=== PATIENT | male | born 1945 | race African-American/Black ===

== ENCOUNTER 2020-05-15 15:22 | Outpatient (REF) | payer SELFPAY ==
[2020-05-15 16:12] LABS: Influenza A PCR NEGATIVE (Negative); Influenza B PCR NEGATIVE (Negative); Resp Syncy Virus RNA Qual PCR NEGATIVE (Negative); SARS COV2 PCR INHOUSE POSITIVE (Negative)
== END 2020-05-15 15:23 | disposition home or self-care (01) ==
LOC: HO.LNP 15:22
PROVIDERS: Visit Provider Family Medicine Geriatric Medicine
DX: Z20.828 Contact with and (suspected) exposure to other viral communicable diseases (principal)
CPT/HCPCS: 0241U

== ENCOUNTER 2020-09-13 17:37 | Emergency (ER) | payer OTHER, SELFPAY ==
--- NOTE | ~2020-09-13 | XR_ITS ---
EXAMINATION: XR CHEST CLINICAL INFORMATION: Cough. COMPARISON: None TECHNIQUE: Frontal view of the chest was obtained. FINDINGS: No acute airspace disease. No pulmonary vascular congestion or pleural effusion. No pneumothorax. The heart size is normal. The cardiac and mediastinal contours are normal. There are multiple healed posterior lateral left rib fractures. Moderate degenerative spondylosis of the spine. Surgical clips right upper quadrant of abdomen. XR/XR chest 1V IMPRESSION: No acute abnormality of chest.
[2020-09-13 17:44] VITALS: BP 142/84; PULSE 61; RESP 18; TEMP 36.9; O2SAT 100; BMI 22.4
[2020-09-13 18:18] VITALS: BP 133/82; PULSE 61; RESP 16; O2SAT 98
[2020-09-13 18:25] LABS: MANUAL DIFF FLAG NO
[2020-09-13 18:34] LABS: Basophils Percent Auto 0.1 % (0-2); Eosinophils Absolute Auto 0.2 X10*3/uL (0.0-0.4); Eosinophils Percent Auto 2.8 % (0-4); Hematocrit 35.8 % (42-52); Imm Gran Abs Auto 0.02 X10*3/uL (0.00-0.03); Imm Gran Pct Auto 0.3 % (0.0-0.4); Lymphocytes Absolute Auto 2.3 X10*3/uL (1.2-4.9); Lymphocytes Percent Auto 32.8 % (20-40); Mean Corpuscular HGB Conc 33.5 g/dl (31.0-36.0); Mean Corpuscular Hemoglobin 30.3 pg (27.0-33.0); Mean Corpuscular Volume 90.4 fL (80-98); Monocytes Absolute Auto 0.9 X10*3/uL (0.1-1.2); Monocytes Percent Auto 12.2 % (2-11); Neutrophils Absolute Auto 3.7 X10*3/uL (2.0-8.3); Neutrophils Percent Auto 51.8 % (45-73); Platelet Count 244 X10*3/uL (160-400); Red Blood Count 3.96 X10*6/uL (4.60-5.80); Red Cell Distribution Width 12.8 % (11.0-16.0); White Blood Count 7.1 X10*3/uL (4.8-10.8)
[2020-09-13 18:52] LABS: Anion Gap 12 (12-20); Blood Urea Nitrogen 6 mg/dL (9-16); Calcium 8.4 mg/dL (8.4-10.2); Carbon Dioxide 24 mmol/L (22-29); Chloride 108 mmol/L (96-108); Creatinine Clr Calc Pharmacy 77.8; Estimated Glomerular Filt Rate > 60; Glucose Random 83 mg/dL (60-115); Potassium 4.1 mmol/L (3.3-5.1); Sodium 140 mmol/L (135-145)
--- NOTE | 2020-09-13 18:59 | ED.PSYCH ---
HPI - Psych General Chief Complaint: Psychiatric Symptoms Stated Complaint: PSYCH EVAL Time Seen by Provider: 09/13/20 17:51 Source: patient and EMS Mode of arrival: EMS Limitations: other (Dementia) History of Present Illness HPI Narrative: 74-year-old male presents via EMS from the [facility] for psychiatric evaluation because of combative behavior. He has past medical history of CVA, CHF, history pancreatitis, failure thrive, and unspecified dementia with behavioral disturbance. Upon presentation, patient is pleasant, talking about his [place] service, that he is from [facility], and that he loves [id number]. He does not report any chest pain or pressure, shortness of breath, fevers, chills, abdominal pain, abdominal distention, suicidal ideation homicidal ideation or any other concerning symptoms. History of same: No Associated psychiatric symptoms: none Associated symptoms: denies other symptoms Related Data Home Medications Medication Instructions Recorded Confirmed apixaban 5 mg PO BID 09/13/20 09/13/20 atorvastatin 40 mg PO BEDTIME 09/13/20 09/13/20 carvedilol 6.25 mg PO BID 09/13/20 09/13/20 ergocalciferol (vitamin D2) 50,000 unit PO Q28D 09/13/20 09/13/20 ferrous sulfate 325 mg PO DAILY 09/13/20 09/13/20 fluoxetine 30 mg PO DAILY 09/13/20 09/13/20 folic acid 1 mg PO DAILY 09/13/20 09/13/20 lisinopril 5 mg PO DAILY 09/13/20 09/13/20 melatonin 3 mg PO BEDTIME 09/13/20 09/13/20 Allergies Allergy/AdvReac Type Severity Reaction Status Date / Time No Known Allergies Allergy Verified 09/13/20 17:52 Review of Systems Review of Systems: Constitutional: No Fever, No Chills ENT/Mouth: No Ear Pain, No Nasal Congestion, No sore throat Eyes: No Eye Pain, No Swelling, No Redness Cardiovascular: No Chest Pain, No SOB Respiratory: No Cough, No Sputum, No Dyspnea Gastrointestinal: No Nausea, No Vomiting, No Diarrhea, No Hematochezia, No Melena Genitourinary: No Dysuria, No Urinary Frequency, No Hematuria Musculoskeletal: No Myalgias Skin: No Skin Lesions, No rash Neuro: No Weakness, No Numbness, No Paresthesias, No Dizziness, No Headache Psych: No Anxiety, no Depression, no SI/HI Heme/Lymph: No Lymphadenopathy Endocrine: No Polyuria, No Polydipsia Yes all other systems are reviewed and are negative [facility] Past Medical History Attestation statement: The following information was validated with the patient. Source: old records reviewed Medical History Cerebral infarct Dementia Failure to thrive Heart failure Hypokalemia Intracerebral hemorrhage Pancreatitis Social History Social History Advance Directives: Yes Advance Directives Information Provided: No Advance Directives on File: No Physical Exam Vital Signs: Vital Signs: Last Vital Signs Temp 98.4 F 09/13/20 21:13 Pulse 65 09/14/20 01:52 Resp 16 09/14/20 01:52 BP 145/79 H 09/14/20 01:52 Pulse Ox 99 09/14/20 01:52 Body Mass Index 22.4 Appearance: Alert. Oriented X2, has dementia per baseline. No acute distress. Eyes: Pupils equal, round and reactive to light. ENT: Pharynx normal. Neck: Normal inspection. Neck supple. CVS: Normal heart rate and rhythm. Pulses normal. Respiratory: No respiratory distress. Lung sounds clear auscultation all lobes. Abdomen: Soft and nontender. Negative Dejesus, McBurney, psoas. Skin: Skin warm and dry. Normal skin color. Normal skin turgor. Extremities: No lower extremity edema. Moves all extremities against resistance. Neuro: No motor deficit. No sensory deficit. Course Course Course Narrative: 74-year-old male with past medical history of CVA, CHF, history pancreatitis, failure thrive, and unspecified dementia with behavioral disturbance presents for psychiatric evaluation for threatening nursing staff with a stick. Will order CBC, Chem 7, urinalysis and behavioral health consult. 2:08 a.m.Physician observation started. Patient placed in physician observation because the patient needs to see N and be evaluated for threatening nursing staff with a stick. At the time observation was started the patient's vitals were within normal limits and stable, patient is alert oriented to self as he has dementia with behavioral disturbance per baseline. Physical exam: No focal neural deficits, cranial nerves 2-12 intact, even unlabored respirations, lung sounds clear to auscultation all lobes, regular rate and rhythm, pulses equal to all extremities, brisk capillary refill, moves all extremities spontaneously. Sign-out to Dr. Santa MDM - Psych Differential Diagnosis Differential diagnosis: Likely acute anxiety and mood disorder Medical Records Attestation: I reviewed the patient's medical records. Lab Data Attestation: I reviewed the patient's lab results. Result diagrams: 09/13/20 18:22 09/13/20 18:21 Labs: Lab Results 09/13/20 09/13/20 09/13/20 Range/Units 18:21 18:22 19:30 WBC 7.1 (4.8-10.8) X10*3/uL RBC 3.96 L (4.60-5.80) X10*6/uL Hgb 12.0 L (14.0-18.0) g/dl Hct 35.8 L (42-52) % MCV 90.4 (80-98) fL MCH 30.3 (27.0-33.0) pg MCHC 33.5 (31.0-36.0) g/dl RDW 12.8 (11.0-16.0) % Plt Count 244 (160-400) X10*3/uL MPV 9.0 L (9.4-12.4) fL Immature Gran % (Auto) 0.3 (0.0-0.4) % Neut % (Auto) 51.8 (45-73) % Lymph % (Auto) 32.8 (20-40) % Boyle % (Auto) 12.2 H (2-11) % Eos % (Auto) 2.8 (0-4) % Baso % (Auto) 0.1 (0-2) % Lymph # (Auto) 2.3 (1.2-4.9) X10*3/uL Boyle # (Auto) 0.9 (0.1-1.2) X10*3/uL Eos # (Auto) 0.2 (0.0-0.4) X10*3/uL Baso # (Auto) 0.0 (0.0-0.2) X10*3/uL Abs Immat Gran (auto) 0.02 (0.00-0.03) X10*3/uL Absolute Neuts (auto) 3.7 (2.0-8.3) X10*3/uL Absolute Nucleated RBC 0.000 (0.0-0.012) X10*3/uL Nucleated RBC % (auto) 0.0 (0.0-0.2) /100WBC Sodium 140 (135-145) mmol/L Potassium 4.1 (3.3-5.1) mmol/L Chloride 108 (96-108) mmol/L Carbon Dioxide 24 (22-29) mmol/L Anion Gap 12 (12-20) BUN 6 L (9-16) mg/dL Creatinine 0.81 (0.5-1.4) mg/dL Estim Creat Clear Calc 77.8 Estimated GFR > 60 Random Glucose 83 (60-115) mg/dL Calcium 8.4 (8.4-10.2) mg/dL Urine Color Urine Appearance Urine pH (5.0-8.0) Ur Specific [place] (1.005-1.025) Urine Protein (NEG-TRACE) MG/DL Urine Glucose (UA) (NEG) MG/DL Urine Ketones (NEG) MG/DL Urine Blood (NEG) Urine Nitrite (NEG) Ur Leukocyte Esterase (NEG) COVID-19 (AYANA) Negative (Negative) COVID-19 Clin Com See Note 09/13/20 Range/Units 21:08 WBC (4.8-10.8) X10*3/uL RBC (4.60-5.80) X10*6/uL Hgb (14.0-18.0) g/dl Hct (42-52) % MCV (80-98) fL MCH (27.0-33.0) pg MCHC (31.0-36.0) g/dl RDW (11.0-16.0) % Plt Count (160-400) X10*3/uL MPV (9.4-12.4) fL Immature Gran % (Auto) (0.0-0.4) % Neut % (Auto) (45-73) % Lymph % (Auto) (20-40) % Boyle % (Auto) (2-11) % Eos % (Auto) (0-4) % Baso % (Auto) (0-2) % Lymph # (Auto) (1.2-4.9) X10*3/uL Boyle # (Auto) (0.1-1.2) X10*3/uL Eos # (Auto) (0.0-0.4) X10*3/uL Baso # (Auto) (0.0-0.2) X10*3/uL Abs Immat Gran (auto) (0.00-0.03) X10*3/uL Absolute Neuts (auto) (2.0-8.3) X10*3/uL Absolute Nucleated RBC (0.0-0.012) X10*3/uL Nucleated RBC % (auto) (0.0-0.2) /100WBC Sodium (135-145) mmol/L Potassium (3.3-5.1) mmol/L Chloride (96-108) mmol/L Carbon Dioxide (22-29) mmol/L Anion Gap (12-20) BUN (9-16) mg/dL Creatinine (0.5-1.4) mg/dL Estim Creat Clear Calc Estimated GFR Random Glucose (60-115) mg/dL Calcium (8.4-10.2) mg/dL Urine Color YELLOW Urine Appearance CLEAR Urine pH 7.0 (5.0-8.0) Ur Specific [place] 1.015 (1.005-1.025) Urine Protein NEG (NEG-TRACE) MG/DL Urine Glucose (UA) NEG (NEG) MG/DL Urine Ketones NEG (NEG) MG/DL Urine Blood NEG (NEG) Urine Nitrite NEG (NEG) Ur Leukocyte Esterase NEG (NEG) COVID-19 (AYANA) (Negative) COVID-19 Clin Com Imaging Data Chest x-ray: Attestation: I personally reviewed and interpreted this imaging study as follows: Radiologist's impression: EXAMINATION: XR CHEST CLINICAL INFORMATION: Cough. COMPARISON: None TECHNIQUE: Frontal view of the chest was obtained. FINDINGS: No acute airspace disease. No pulmonary vascular congestion or pleural effusion. No pneumothorax. The heart size is normal. The cardiac and mediastinal contours are normal. There are multiple healed posterior lateral left rib fractures. Moderate degenerative spondylosis of the spine. Surgical clips right upper quadrant of abdomen. XR/XR chest 1V IMPRESSION: No acute abnormality of chest. Discharge Plan Discharge Clinical Impression: Dementia Qualifiers: Dementia type: unspecified type Dementia behavioral disturbance: with behavioral disturbance Qualified Code(s): F03.91 - Unspecified dementia with behavioral disturbance Prescriptions: No Action atorvastatin 40 mg Tablet 40 mg PO BEDTIME RF: 0 carvedilol 6.25 mg Tablet 6.25 mg PO BID RF: 0 melatonin 3 mg Tablet 3 mg PO BEDTIME RF: 0 ergocalciferol (vitamin D2) 50,000 unit Tablet 50,000 unit PO Q28D RF: 0 fluoxetine 10 mg Capsule 30 mg PO DAILY RF: 0 folic acid 1 mg Tablet 1 mg PO DAILY RF: 0 lisinopril 5 mg Tablet 5 mg PO DAILY RF: 0 ferrous sulfate 325 mg (65 mg iron) Tablet,Delayed Release (Dr/Ec) 325 mg PO DAILY RF: 0 apixaban 5 mg Tablet 5 mg PO BID RF: 0
[2020-09-13 19:53] LABS: COVID-19 Test Negative (Negative)
[2020-09-13 20:00] VITALS: BP 137/70; PULSE 67; RESP 16; TEMP 37.1; O2SAT 100
[2020-09-13 21:13] VITALS: BP 139/78; PULSE 63; RESP 16; TEMP 36.9; O2SAT 96
[2020-09-13 21:22] LABS: Glucose Urine UA NEG (NEG); Leukocyte Esterase Urine NEG (NEG); Nitrite Urine NEG (NEG); Specific Gravity - Urine 1.015 (1.005-1.025); Urine Blood NEG (NEG); Urine Ketones NEG (NEG); Urine Protein NEG (NEG-TRACE)
[2020-09-13 21:25] LABS: Appearance Urine CLEAR; Color Urine YELLOW
--- NOTE | 2020-09-13 21:31 | PC.NURSE ---
pt has been calm and cooperative, engaged in conversation and with a good sense of humor. pt unable to void on his own, straight cath with aprox 150ml. pt moved to hospital bed for comfort, awaiting N evaluation.
--- NOTE | 2020-09-13 21:37 | PC.NURSE ---
summary faxed to [facility].
[2020-09-14] VITALS (8 sets, daily range): BP systolic 113–145; BP diastolic 73–88; PULSE 57–84; RESP 16–18; TEMP 36.8; O2SAT 98–100
--- NOTE | 2020-09-14 01:44 | PC.NURSE ---
PT GIVEN COFFEE, SANDWICH AND PUDDING. PT IN GOOD SPIRITS. MEDICATIONS JUST APPROVEDBY PHARMACY, WILL ADMINISTER EVENING MEDICATIONS.
[2020-09-14] MEDS: Atorvastatin Calcium 40 MG TABLET PO ×2 (01:50→20:24)
[2020-09-14] MEDS: Apixaban 5 MG TABLET PO ×3 (01:50→20:24)
[2020-09-14] MEDS: carvediloL 6.25 MG TABLET PO ×3 (01:51→20:23)
[2020-09-14] MEDS: Melatonin 3 MG TABLET PO ×2 (01:52→20:24)
--- NOTE | 2020-09-14 03:43 | PC.NURSE ---
CALLED TO CONFIRM PT ON [facility] WAITING LIST.
[2020-09-14] MEDS: Folic Acid 1 MG TABLET PO (09:01)
[2020-09-14] MEDS: FLUoxetine HCl 10 MG CAPSULE 30 MG PO (09:01)
[2020-09-14] MEDS: lisinopriL 5 MG TABLET PO (09:02)
[2020-09-14] MEDS: Ferrous Sulfate 324 MG TABLET.DR PO (09:02)
--- NOTE | 2020-09-14 12:07 | MHC.CM.ED ---
Received telephone call from Caitlyn segura [facility] on [address]. Patient is a usp resident at their facility. If patient is cleared by crisis, he can return. Referral started in allscripts. Continue to monitor for d/c needs.
--- NOTE | 2020-09-14 16:23 | PC.NURSE ---
spoke with patients . patient has tendency to get confused around 4/5pm. [facility] at bedside.
--- NOTE | 2020-09-14 19:05 | MHC.CM.ED ---
CM met with pt. Very pleasant and quiet. Is confused, with HX of dementia. Is very happy with dinner. When asked about senior living, pt states they are very nice . And they take good care of me. . Pt has been cleared by CARE team. Pt does not meet criteria for inpatient psych placement and can return to senior living. Spoke with nurse at [facility]. States their is no one available at ^pm to accept the patient and CM would need to call back in the morning. RN and MECHANICAL SOUND TECHNICIAN aware. Expect D/C plan tomorrow is to return to [facility]. CM to follow for d/c needs.
--- NOTE | 2020-09-14 19:10 | MHC.CM.ED ---
[facility] [phone].
--- NOTE | 2020-09-15 06:57 | PC.NURSE ---
Report received from Yesika LYNN. Patient is resting comfortably in bed a this time. Bed linen changed of incontinent urine and patient given bed bath and fresh gown and pants. Patient sitting upright in bed now and eating breakfast independently. Respirations regular and even. Skin PWD. VSS. Denies any needs at this time.
[2020-09-15 07:37] VITALS: BP 118/61; PULSE 66; RESP 16; O2SAT 99
[2020-09-15] MEDS: Folic Acid 1 MG TABLET PO (08:49)
[2020-09-15] MEDS: FLUoxetine HCl 10 MG CAPSULE 30 MG PO (08:49)
[2020-09-15] MEDS: Ferrous Sulfate 324 MG TABLET.DR PO (08:49)
[2020-09-15 08:50] VITALS: BP 120/88; PULSE 80
[2020-09-15] MEDS: Apixaban 5 MG TABLET PO (08:50)
[2020-09-15] MEDS: lisinopriL 5 MG TABLET PO (08:50)
[2020-09-15] MEDS: carvediloL 6.25 MG TABLET PO (08:50)
--- NOTE | 2020-09-15 08:50 | PC.NURSE ---
Patient medicated with AM meds. Took willingly. Call castle in reach, will continue to monitor.
--- NOTE | 2020-09-15 09:39 | MHC.CM.ED ---
Patient remains in ER. Cleared by Care Team. Clinical updates sent to [facility] on [address]. Continue to monitor for d/c needs.
[2020-09-15 09:42] VITALS: TEMP 36.8
--- NOTE | 2020-09-15 10:42 | PC.NURSE ---
Patient asleep on stretcher at this time, appears comfortable. Respirations regular and even. Skin PWD.
--- NOTE | 2020-09-15 11:31 | MHC.CM.ED ---
Per Caitlyn at [facility] on [address], patient can leave at 1230pm. [facility] BLS booked. Med nec with chart. Patient, /HCP Isis Vo RN and Dennise YOUNG aware.
[2020-09-15 11:55] VITALS: RESP 18
--- NOTE | 2020-09-15 11:55 | PC.NURSE ---
patient currently sleeping, pt to discharge back to [facility] [place] per case management
--- NOTE | 2020-09-15 12:06 | PC.NURSE ---
report called to gamae
== END 2020-09-15 12:35 ==
PROVIDERS: Nurse Practitioner Family; Emergency Provider Emergency Medicine Emergency Medical Services; PCP Family Medicine Geriatric Medicine
DX: F03.91 Unspecified dementia, unspecified severity, with behavioral disturbance (principal); R05 Cough; R33.9 Retention of urine, unspecified; Z20.822 Contact with and (suspected) exposure to COVID-19; Z79.899 Other long term (current) drug therapy
CPT/HCPCS: 36415; 51702; 71045; 80048; 81003; 85025; 87635; 99285

== ENCOUNTER 2020-09-22 03:34 | Emergency (ER) | payer OTHER, SELFPAY ==
[2020-09-22 03:40] VITALS: BP 109/65; PULSE 60; PULSE 87; RESP 16; TEMP 37.2; O2SAT 96; BMI 19.2
--- NOTE | 2020-09-22 04:21 | PC.NURSE ---
Addendum entered by Eva Bhagat 09/22/20 04:29: [facility] fax # [phone] Original Note: This RN spoke with Kale (RN at [facility] [place]) over the phone regarding complaint/reason for transfer to [facility] ED. Kale states I am a male nurse, and the only nurse on the floor, with two female CNAs. The CNAs came to me and said that the patient was becoming more aggressive and trying to pull the CNAs into his bed while they were attempting to provide care. Nelson was using his wheelchair as a weapon and threatening to 'kill all of us' and tried to attack us with his arms, so I called the police and spoke with the on-call physician who recommended that the patient be transferred to [facility] for a psychiatric evaluation. I wanted to file a Section 12, but I didn't have the paperwork to fill one out so I need it faxed to me, so I can fill one out. This RN told Kale that since arrival, patient has been calm/cooperative/pleasant with staff, and will relay this information to ED physician . Kale states that's what happens...he's usually fine at other places, but when he's here at [facility], he becomes aggressive and threatening. Plan to draw labs, awaiting ED MD evaluation and will update regarding plan of care as needed.
--- NOTE | 2020-09-22 04:54 | ED_ITS ---
HPI - General Adult General Chief complaint: General Medical Stated complaint: sec 12 Time Seen by Provider: 09/22/20 04:03 Source: patient, EMS and RN notes reviewed Mode of arrival: EMS History of Present Illness HPI narrative: This is a 74-year-old male who is brought in by EMS after an incident at [facility] where the staff became concerned about patient's ?aggressive behaviors and verbal threats?. As per patient he states he accidentally went to the bathroom on the bed and thought that the nurse got mad at him for that and that there was a ?misunderstanding?. Patient denies suicidal or homicidal ideations. Patient denies any current complaints with breathing, chest pain, coughing, appetite, or urinary problems. Related Data Home Medications Medication Instructions Recorded Confirmed apixaban 5 mg PO BID 09/13/20 09/13/20 atorvastatin 40 mg PO BEDTIME 09/13/20 09/13/20 carvedilol 6.25 mg PO BID 09/13/20 09/13/20 ergocalciferol (vitamin D2) 50,000 unit PO Q28D 09/13/20 09/13/20 ferrous sulfate 325 mg PO DAILY 09/13/20 09/13/20 fluoxetine 30 mg PO DAILY 09/13/20 09/13/20 folic acid 1 mg PO DAILY 09/13/20 09/13/20 lisinopril 5 mg PO DAILY 09/13/20 09/13/20 melatonin 3 mg PO BEDTIME 09/13/20 09/13/20 Allergies Allergy/AdvReac Type Severity Reaction Status Date / Time No Known Allergies Allergy Verified 09/13/20 17:52 Review of Systems Review of Systems: Pertinent positives and negatives as stated in HPI and 10 point review systems is otherwise negative. [facility] Past Medical History Source: nursing notes reviewed Medical History Cerebral infarct COVID-19 Dementia Failure to thrive Gallbladder disease H/O ETOH abuse Heart failure Hypokalemia Intracerebral hemorrhage Neck fracture Pancreatitis Social History Social History Alcohol intake: unknown Smoking Status: Unknown if ever smoked Advance Directives: Yes Advance Directives on File: Yes Advance Directives Date on File: 09/14/20 Physical Exam Vital Signs: Vital Signs: Last Vital Signs Temp 98.9 F 09/22/20 03:40 Pulse 87 09/22/20 03:40 Resp 16 09/22/20 03:40 BP 109/65 09/22/20 03:40 Pulse Ox 96 09/22/20 03:40 Body Mass Index 19.2 VITAL SIGNS: Reviewed. GENERAL: Well developed, well nourished, in no acute distress. HEAD: Normocephalic/atraumatic EYES: PERRLA, EOMI EARS: Ext canals without abnormality, TMs non-bulging and non-erythematous NOSE: Nares patent bilateral OROPHARYNX: no oral lesions noted, posterior pharynx clear NECK: Supple, no adenopathy LUNGS: Normal breath sounds. No adventitious sounds or accessory muscle use. SpO2<96> CARDIOVASCULAR: Regular rate and rhythm without noted murmurs ABDOMEN: Soft, non-tender, non-distended with bowel sounds. SKIN: Inspection of the skin reveals no rashes NEUROLOGIC: Alert and oriented x 4. Strength and sensation to light touch were grossly intact x 4. Course Course Course Narrative: 74-year-old male with history and clinical presentation consistent with dementia and behavioral features consistent with this diagnosis at baseline. Patient was sent previously by this facility on 09/14 and was evaluated and cleared by the crisis team. We will evaluate with basic lab work for any indication there have been changes that may have led to this latest episode. However, if these are within normal limits patient will be transferred back to [facility] with recommendations to pursue further evaluation in the outpatient setting. Review of all investigations is negative for any acute findings that would suggest infectious or metabolic etiologies for the described behavior. Patient is otherwise medically stable for return to the long-term care facility and further evaluation and treatment of his dementia related behaviors. Medical Decision Making Lab Data Result diagrams: 09/22/20 04:57 09/22/20 04:57 Labs: Lab Results 09/22/20 09/22/20 Range/Units 04:57 04:57 WBC 9.1 (4.8-10.8) X10*3/uL RBC 3.95 L (4.60-5.80) X10*6/uL Hgb 11.7 L (14.0-18.0) g/dl Hct 35.0 L (42-52) % MCV 88.6 (80-98) fL MCH 29.6 (27.0-33.0) pg MCHC 33.4 (31.0-36.0) g/dl RDW 12.7 (11.0-16.0) % Plt Count 239 (160-400) X10*3/uL MPV 8.8 L (9.4-12.4) fL Immature Gran % (Auto) 0.2 (0.0-0.4) % Neut % (Auto) 63.7 (45-73) % Lymph % (Auto) 21.7 (20-40) % [place] % (Auto) 11.7 H (2-11) % Eos % (Auto) 2.5 (0-4) % Baso % (Auto) 0.2 (0-2) % Lymph # (Auto) 2.0 (1.2-4.9) X10*3/uL [place] # (Auto) 1.1 (0.1-1.2) X10*3/uL Eos # (Auto) 0.2 (0.0-0.4) X10*3/uL Baso # (Auto) 0.0 (0.0-0.2) X10*3/uL Abs Immat Gran (auto) 0.02 (0.00-0.03) X10*3/uL Absolute Neuts (auto) 5.8 (2.0-8.3) X10*3/uL Absolute Nucleated RBC 0.000 (0.0-0.012) X10*3/uL Nucleated RBC % (auto) 0.0 (0.0-0.2) /100WBC Sodium 141 (135-145) mmol/L Potassium 3.5 (3.3-5.1) mmol/L Chloride 109 H (96-108) mmol/L Carbon Dioxide 20 L (22-29) mmol/L Anion Gap 16 (12-20) BUN 10 D (9-16) mg/dL Creatinine 0.89 (0.5-1.4) mg/dL Estim Creat Clear Calc 72.0 Estimated GFR > 60 Random Glucose 101 (60-115) mg/dL Calcium 8.4 (8.4-10.2) mg/dL Total Bilirubin 0.3 (0.0-1.0) mg/dL AST 12 (5-37) U/L ALT 6 (0-40) U/L Alkaline Phosphatase 87 (39-117) U/L Total Protein 6.5 (6.5-8.0) g/dL Albumin 3.5 (3.5-5.0) g/dL Discharge Plan Discharge Clinical Impression: Dementia Qualifiers: Dementia type: unspecified type Dementia behavioral disturbance: with behavioral disturbance Qualified Code(s): F03.91 - Unspecified dementia with behavioral disturbance Patient Disposition: Xfer SNF Instructions: Dementia (ED) Additional Instructions: Please resume all home medications as prescribed. Please have patient followed up and reassessed in the outpatient setting for additional medications that may assist in dementia related behaviors. Do not hesitate to return patient to the emergency department for any acute worsening of symptoms. Prescriptions: No Action atorvastatin 40 mg Tablet 40 mg PO BEDTIME RF: 0 carvedilol 6.25 mg Tablet 6.25 mg PO BID RF: 0 melatonin 3 mg Tablet 3 mg PO BEDTIME RF: 0 ergocalciferol (vitamin D2) 50,000 unit Tablet 50,000 unit PO Q28D RF: 0 fluoxetine 10 mg Capsule 30 mg PO DAILY RF: 0 folic acid 1 mg Tablet 1 mg PO DAILY RF: 0 lisinopril 5 mg Tablet 5 mg PO DAILY RF: 0 ferrous sulfate 325 mg (65 mg iron) Tablet,Delayed Release (Dr/Ec) 325 mg PO DAILY RF: 0 apixaban 5 mg Tablet 5 mg PO BID RF: 0 Referrals: Physician,Unknown [Primary Care Provider] - 2 days
[2020-09-22 05:01] LABS: MANUAL DIFF FLAG NO
[2020-09-22 05:02] LABS: Basophils Percent Auto 0.2 % (0-2); Eosinophils Absolute Auto 0.2 X10*3/uL (0.0-0.4); Eosinophils Percent Auto 2.5 % (0-4); Hemoglobin 11.7 g/dl (14.0-18.0); Imm Gran Abs Auto 0.02 X10*3/uL (0.00-0.03); Imm Gran Pct Auto 0.2 % (0.0-0.4); Lymphocytes Percent Auto 21.7 % (20-40); Mean Corpuscular HGB Conc 33.4 g/dl (31.0-36.0); Mean Corpuscular Hemoglobin 29.6 pg (27.0-33.0); Mean Corpuscular Volume 88.6 fL (80-98); Mean Platelet Volume 8.8 fL (9.4-12.4); Monocytes Absolute Auto 1.1 X10*3/uL (0.1-1.2); Monocytes Percent Auto 11.7 % (2-11); Neutrophils Absolute Auto 5.8 X10*3/uL (2.0-8.3); Neutrophils Percent Auto 63.7 % (45-73); Platelet Count 239 X10*3/uL (160-400); Red Blood Count 3.95 X10*6/uL (4.60-5.80); Red Cell Distribution Width 12.7 % (11.0-16.0); White Blood Count 9.1 X10*3/uL (4.8-10.8)
[2020-09-22 05:28] LABS: Alanine Aminotransferase 6 U/L (0-40); Albumin Level 3.5 g/dL (3.5-5.0); Alkaline Phosphatase 87 U/L (39-117); Anion Gap 16 (12-20); Aspartate Amino Transferase 12 U/L (5-37); Bilirubin Total 0.3 mg/dL (0.0-1.0); Blood Urea Nitrogen 10 mg/dL (9-16); Calcium 8.4 mg/dL (8.4-10.2); Carbon Dioxide 20 mmol/L (22-29); Chloride 109 mmol/L (96-108); Estimated Glomerular Filt Rate > 60; Glucose Random 101 mg/dL (60-115); Potassium 3.5 mmol/L (3.3-5.1); Sodium 141 mmol/L (135-145); Total Protein 6.5 g/dL (6.5-8.0)
--- NOTE | 2020-09-22 05:49 | PC.NURSE ---
Pt unable to provide urine specimen at this time. Given inge conner as requested. Pt remains pleasant, calm, & cooperative with staff. aware of patient being unable to provide specimen at this time. Plan to discontinue [facility] order. Labs unremarkable. Pt seen within the last week by [facility] staff, and was pleasant while at [facility]. Pt continues to deny SI/HI, and plan is to discharge back to [facility] with follow-up evaluation by [facility] physicians/services. Pt does not meet criteria for Section 12 or psychiatric evaluation while in ED, per .
[2020-09-22 06:00] VITALS: PULSE 82; RESP 16; O2SAT 99
--- NOTE | 2020-09-22 06:23 | PC.NURSE ---
[facility] and spoke with Kale (RN). Discussed [facility]. Kale states No, we can't take him back . This RN stated the patient has been evaluated by myself, the ED physician (), & was seen by N last week during his previous ED visit. He has been medically cleared, has been pleasant/calm/cooperative, and upon evaluation, we feel that a Section 12 or ED psychiatric evaluation is unnecessary. On what basis can't the patient return to your facility? Kale stated on the basis of why I sent him there. I won't take him back. The new staff can take him after 7:30am. I'm not taking him back. This RN stated I will speak with my team regarding this, however, we have no reason to keep him at [facility] . Jenni Malhotra (admission discharge rn), & Yin (Nursing Toe Puller) aware of situation.
--- NOTE | 2020-09-22 06:43 | PC.NURSE ---
5 attempts to reach prison staff between [phone] to give report on pt returning to facility- no answer. upon finally reaching pt nurse, nurse attempting to refuse return of pt stating he is a harm to others. notified, request for grinding supervisor to call back ER. pt remains calm and cooperative resting in bed eyes closed, no distress noted.
== END 2020-09-22 08:15 | disposition skilled nursing facility (03) ==
PROVIDERS: Emergency Provider Student in an Organized Health Care Education/Training Program
DX: F03.91 Unspecified dementia, unspecified severity, with behavioral disturbance (principal); Z86.16 Personal history of COVID-19
CPT/HCPCS: 36415; 80053; 85025; 99284